=== PATIENT | male | born 1935 | race Two or more races ===

== ENCOUNTER 2020-04-18 18:19 | Emergency (ER) | payer MEDICARE, OTHER ==
[~2020-04-18] VITALS: Ht 165.1 cm; Wt 77.1 kg
[~2020-04-18 18:19] MED LIST: NORCO 5-325 TA1 EACH ORAL; [UNRECOGNIZED DRUG - REMARK]
[2020-04-18 18:32] VITALS: BP 142/67
--- NOTE | 2020-04-18 18:32 | NUR ---
ED Nurse Note: Pt ambulated to ED d/t fall. Pt is AOx4, per pt, he was walking on the sidewalk then accidentally slipped at 1700, hit his wrist, nose and forehead. Placed on bed, VSS, on RA, afebrile on triage.
--- NOTE | 2020-04-18 18:39 | Emergency Room Report ---
History of Present Illness General Chief Complaint: Multiple Trauma/Fall Source: Patient Present Illness HPI Patient is a 84-year-old male who presented after a mechanical fall. Patient denies any loss of consciousness. Does not take any blood thinners. Reports having increased pain to the left wrist as well as to his nasal bridge. Patient reportedly tripped while walking. Denies any recent tetanus vaccine. Allergies: Coded Allergies: No Known Allergies (Unverified , 04/13/14) COVID-19 Screening Contact w/high risk pt: No Recent Travel to affected area: No Experienced COVID-19 symptoms?: No COVID-19 Testing performed RETORT FURNACE HELPER: No Patient History Past Medical History: see triage record Reviewed Nursing Documentation: PMH: Agreed; PSxH: Agreed Nursing Documentation-PMH Past Medical History: No History, Except For Hx Hypertension: Yes Review of Systems All Other Systems: negative except mentioned in HPI Physical Exam Vital Signs Date Time Temp Pulse Resp B/P (MAP) Pulse Ox O2 Delivery O2 Flow Rate FiO2 04/18/20 18:21 98.4 77 20 142/67 (92) 96 Room Air General Appearance: well appearing, no apparent distress, alert, GCS 15 Head: normocephalic, atraumatic ENT: hearing grossly normal, normal voice Neck: full range of motion, supple Respiratory: lungs clear, no respiratory distress, speaking full sentences Cardiovascular #1: normal inspection, no edema Gastrointestinal: normal inspection Musculoskeletal: normal inspection, gait/station normal Neurologic: alert, motor strength/tone normal, process operator III-XII nml as tested, oriented x3, normal gait Psychiatric: mood/affect normal Skin: other - facial abrasion Medical Decision Making Diagnostic Impression: Primary Impression: Fall Additional Impressions: Contusion of face Contusion, wrist Nasal fracture ER Course Presented for facial pain after a fall. Differential diagnosis include was not limited to fracture, contusion, sprain among others. Because of complexity of patient's case imaging studies were ordered. Patient was noted to be awake and alert with a normal mental status. CT imaging of the facial bones was ordered. X-ray imaging of the left wrist read by radiology showed osteopenia and degenerative changes with no definite fracture identified. See radiology report for full details. Patient was placed in a splint. CT imaging of the head and facial bones showed nasal fracture which was minimally displaced. Patient was advised to follow-up with ENT. Patient was noted to be ambulatory without assistance and appears to have a steady gait. Patient son was given return precautions. Patient was to return if any worse. The patient is advised to follow up with primary care doctor in 1-2 days. Patient was also advised to follow-up with ENT for reevaluation of fracture patient is advised to return if any worsening condition or if any changes in status that are concerning. This report is dictated with [employer] tanning wheel operator software which may occasionally lead to discrepancies related to use of this software. Last Vital Signs Date Time Temp Pulse Resp B/P (MAP) Pulse Ox O2 Delivery O2 Flow Rate FiO2 04/18/20 18:21 98.4 77 20 142/67 (92) 96 Room Air Status: improved Disposition: HOME, SELF-CARE Condition: Stable Scripts Bacitracin Zinc* (BACITRACIN ZINC*) 1 Each Packet 1 APPLIC TOPIC THREE TIMES A DAY, #20 PACKET Prov: Smith Gupta MD 04/18/20 Smith Gupta MD Apr 18, 2020 18:39
[2020-04-18] MEDS ORDERED: Tetanus/Diptheria/Pertussis IM ONE (18:45)
--- NOTE | 2020-04-18 18:51 | NUR ---
ED Nurse Note: pt was taken to CT on stable condition.
--- NOTE | 2020-04-18 19:05 | NUR ---
ED Nurse Note: Report given to ELIZABETH Moon for continuity of care.
--- NOTE | 2020-04-18 19:21 | NUR ---
ED Nurse Note: Wrist xray done
--- NOTE | 2020-04-18 19:29 | Diagnostic Imaging Report ---
EXAM: CT Maxillofacial Without Intravenous Contrast CLINICAL HISTORY: PAIN TECHNIQUE: Axial computed tomography images of the face without intravenous contrast. CTDI is 69 mGy and DLP is 1335 mGy-cm. One or more of the following dose reduction techniques were used: automated exposure control, adjustment of the mA and/or kV according to patient size, use of iterative reconstruction technique. Coronal reformatted images were created and reviewed. Axial reformatted images were created and reviewed. COMPARISON: No relevant prior studies available. FINDINGS: Bones/joints: Tiny comminuted nasal bone fractures with soft tissue edema. Osteopenia. Soft tissues: See above. Orbits: Unremarkable. Sinuses: Mucosal thickening in the maxillary sinuses and ethmoidal air cells. Unremarkable remaining paranasal sinuses. No air-fluid levels. Other findings: Otherwise no acute traumatic injury seen. For head findings, please see dedicated imaging report from the same date. IMPRESSION: 1. Tiny comminuted nasal bone fractures with soft tissue edema. 2. Otherwise no acute traumatic injury seen. 3. For head findings, please see dedicated imaging report from the same date. 4. Paranasal sinus disease as above.
--- NOTE | 2020-04-18 19:31 | Diagnostic Imaging Report ---
EXAM: CT Head Without Intravenous Contrast CLINICAL HISTORY: PAIN TECHNIQUE: Axial computed tomography images of the head/brain without intravenous contrast. CTDI is 69 mGy and DLP is 1335 mGy-cm. One or more of the following dose reduction techniques were used: automated exposure control, adjustment of the mA and/or kV according to patient size, use of iterative reconstruction technique. COMPARISON: No relevant prior studies available. FINDINGS: Brain: Parenchymal volume loss. Nonspecific white matter hypoattenuation likely secondary to chronic microvascular ischemia. Cerebrovascular ASVD. No hemorrhage. Ventricles: Unremarkable. No ventriculomegaly. Bones/joints: Small nasal bone fractures. Soft tissues: Unremarkable. Sinuses: Paranasal sinus disease involving ethmoidal air cells and maxillary sinuses. Otherwise unremarkable paranasal sinuses. Mastoid air cells: Unremarkable as visualized. No mastoid effusion. IMPRESSION: 1. No acute intracranial abnormality. 2. Paranasal sinus disease involving ethmoidal air cells and maxillary sinuses. 3. Small nasal bone fractures. 4. Mild chronic senescent findings above. 5. Otherwise unremarkable study.
[2020-04-18] MEDS ORDERED: BACITRACIN ZIN1 EACH TOPIC (19:34)
[2020-04-18 19:40] VITALS: BP 142/67
--- NOTE | 2020-04-18 19:40 | NUR ---
ER DISCHARGE NOTE: Patient is cleared to be discharged per ERMD, pt is aox4, on room air, with stable vital signs. pt was given dc and prescription instructions, pt was able to verbalize understanding, pt id band removed. pt is able to ambulate with steady gait. pt took all belongings.
--- NOTE | 2020-04-18 19:41 | Diagnostic Imaging Report ---
EXAM: XR Left Wrist Complete, 3 or More Views CLINICAL HISTORY: PAIN TECHNIQUE: Frontal, lateral and oblique views of the left wrist. COMPARISON: No relevant prior studies available. FINDINGS: Bones/joints: Osteopenia and advanced age-related degenerative findings limit evaluation for small and nondisplaced fractures. No acute traumatic osseous injury identified. 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 No dislocation. Soft tissues: Unremarkable. No radiopaque foreign body. IMPRESSION: 1. Osteopenia and advanced age-related degenerative findings limit evaluation for small and nondisplaced fractures. 2. No acute traumatic osseous injury identified. 3. If there is continued concern for occult fracture, recommend cross- sectional imaging. 4. 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
[2020-04-18] MEDS ORDERED: Bacitracin Oint UD TOPIC ONE (19:45)
== END 2020-04-18 19:40 | disposition home or self-care (01) ==
LOC: EMR 18:45
DX: S60.212A Contusion of left wrist, initial encounter (principal); S00.83XA Contusion of other part of head, initial encounter; S02.2XXA Fracture of nasal bones, initial encounter for closed fracture; W01.0XXA Fall on same level from slipping, tripping and stumbling without subsequent striking against object, initial encounter; Y92.9 Unspecified place or not applicable; I10 Essential (primary) hypertension; Z23 Encounter for immunization
CPT/HCPCS: 29125; 70450; 70486; 90471; 90715; 99284